=== PATIENT | male | born 1960 | race Caucasian/White ===

== ENCOUNTER 2022-08-16 12:05 | Emergency (ER) | payer OTHER, SELFPAY ==
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
[2022-08-16 12:14] VITALS: BP 127/97; PULSE 67; RESP 18; TEMP 36.8; O2SAT 98
[2022-08-16] MEDS: SILVER SULFADIAZINE 1% CR 50 GM JAR (*BKC) 1 APPLIC TOPICAL (12:31)
== END 2022-08-16 12:37 | disposition home or self-care (01) ==
PROVIDERS: Emergency Provider Nurse Practitioner Family; PCP Emergency Medicine
DX: T23.262A Burn of second degree of back of left hand, initial encounter (principal); T23.232A Burn of second degree of multiple left fingers (nail), not including thumb, initial encounter; X01.0XXA Exposure to flames in uncontrolled fire, not in building or structure, initial encounter; W40.8XXA Explosion of other specified explosive materials, initial encounter; Z96.651 Presence of right artificial knee joint
CPT/HCPCS: 99213; A9270; G0463

== ENCOUNTER 2024-11-24 17:13 | Emergency (ER) | payer OTHER, SELFPAY ==
--- OUTSIDE RECORDS SUMMARY | 2024-11-24 17:17 | XMS_ITS | Clinical Summary ---
Author Organization [facility] Address [address] [place] [address] Care Team Providers Care Charge Entry Name Role Phone Jason Powell Primary Care Provider [phone] Allergies Active Allergy Reactions Criticality Noted Date Comments Statins Other (see comment) Medium 11/21/2018 Possible reaction to statins, with generalized edema and myalgia Medications SUMAtriptan 50 MG tabletIndications :Migraine without aura and without status migrainosus, not intractable TAKE 1 TABLET BY MOUTH WITH HEADACHE. REPEAT EVERY 2 HOURS NEEDED TO A MAX OF 4 TABLETS IN 24 HOURS 27 tablet 1 2 Active aspirin EC (ECOTRIN) 81 MG tablet Take 1 tablet (81 mg total) by mouth daily. Active ezetimibe (ZETIA) 10 MG tabletIndications :Essential hypertension Take 1 tablet (10 mg total) by mouth daily. 90 tablet 1 5 Active hydroCHLOROthiazi de (MICROZIDE) 12.5 MG tabletIndications :Essential hypertension Take 1 tablet (12.5 mg total) by mouth every morning. 90 tablet 1 5 Active meloxicam (MOBIC) 7.5 MG tabletIndications :Chronic pain of right knee Take 1 tablet (7.5 mg total) by mouth daily. 90 tablet 1 5 Active losartan (COZAAR) 50 MG tabletIndications :Essential hypertension Take 1 tablet (50 mg total) by mouth daily. 90 tablet 1 5 Active ondansetron (ZOFRAN) 4 MG tablet Take 1 tablet (4 mg total) by mouth every 8 (eight) hours as needed for Nausea. 20 tablet 5 Active ibuprofen (MOTRIN) 600 MG tablet Take 1 tablet (600 mg total) by mouth every 6 (six) hours as needed. FOR PAIN 5 Active propranolol (INDERAL) 40 MG tabletIndications :Essential hypertension TAKE 1 TABLET BY MOUTH DAILY 90 tablet 5 Active pantoprazole EC (PROTONIX) 40 MG tabletIndications :Gastroesophageal reflux disease with esophagitis without hemorrhage Take 1 tablet (40 mg total) by mouth 2 (two) times a day. 90 tablet 1 5 Active pantoprazole EC (PROTONIX) 40 MG tabletIndications :Gastroesophageal reflux disease with esophagitis without hemorrhage Take 1 tablet (40 mg total) by mouth 2 (two) times a day. 90 tablet 1 5 11/16/19 25 Discontinu ed(Reorder ) Active Problems Problem Noted Date Diagnosed Date Chest pain 07/18/2023 Dyspnea on exertion 06/30/2023 Status post right knee replacement 05/23/2022 Acquired adduction deformity of foot, right 04/23 Rectal bleeding 03/31/2022 Overview (03/31/2022): Added automatically from request for surgery [id number] Tibialis posterior tendinitis 12/20/2020 Osteoarthritis of knee 04/17/2020 Obstructive sleep apnea on CPAP 04/17/2019 Migraine without aura and wi thout status migrainosus, not intractable 07/30/2018 Assessment & Plan (07/30/2018 10:08 AM CDT): Remote history of migraine headaches, with recurrence in the past month, without trauma or other apparent inciting events. Actually waking up in the night with headache, to the point of vomiting at times. Positive photophobia, as well as vertiginous symptoms with headache. Will obtain imaging studies prior to initiating additional treatments. Patient to call with medication used at home for relief. Spinal stenosis of lumbar re gion, unspecified whether neurogenic claudication present 02/01/2018 Assessment & Plan (07/30/2018 10:28 AM CDT): See lumbar radiculopathy, above. Status post finger joint fusion 12/01/2017 Class 1 obesity due to exces s calories with serious comorbidity and body mass index (BMI) of 31.0 to 31.9 in adult 08/12/2017 Assessment & Plan (07/30/2018 10:29 AM CDT): Patient planning on increasing activity and focusing on weight loss. Encouraged routine activity and exercise. Other hyperlipidemia 08/12/2017 Overview (02/12/2018): Transitioned From: Hypercholesterolemia Assessment & Plan (07/30/2018 10:28 AM CDT): Tolerating pravastatin well. Repeat lipid panel today for possible adjustment. Assessment & Plan (04/10/2018 8:48 AM [employer]): Currently tolerating relatively high dose pravastatin. Fasting today-will obtain fasting lipid profile for reevaluation of current therapy. Continue low-fat, low-cholesterol diet. Adjust medication as indicated by lab results. Pending those results, reevaluate in 6 months or 1 year. History of kidney stones 04/08/2017 Overview (02/12/2018): Transitioned From: History of kidney stones Lumbar radiculopathy 02/09/2017 Assessment & Plan (07/30/2018 10:25 AM CDT): Improved on current regimen including Robaxin and scheduled meloxicam. Discharged from neurosurgery and interventional pain management. We will continue to prescribe this for him, as symptoms are stable at this time. Assessment & Plan (04/10/2018 8:46 AM [employer] STICKER): Stable. Managed at present with scheduled meloxicam and routine activity including low back stretches/exercises. Intermittent follow-up with interventional pain management, which remains effective. No change to present therapy. Obtain routine lab work today. Right knee pain 09/24/2016 Medication management 04/27/2015 Assessment & Plan (07/30/2018 10:29 AM CDT): Checking routine labs today (see orders) for ongoing medication monitoring. Assessment & Plan (04/10/2018 8:49 AM [employer]ICK[employer]): Checking routine labs today (see orders) for ongoing medication monitoring. Gastroesophageal reflux dise ase with esophagitis without hemorrhage 03/22/2013 Assessment & Plan (07/30/2018 10:28 AM CDT): Well-controlled on current regimen. Check routine labwork. No treatment change. Assessment & Plan (04/10/2018 8:47 AM [employer]ICKER): Stable on current dosing of pantoprazole, without breakthrough symptoms. Continue present treatments, obtain vitamin B12 and folic acid in addition to other routine lab work, for ongoing PPI use. Reevaluate in 6 months. Essential hypertension 03/22/2013 Assessment & Plan (07/30/2018 10:27 AM CDT): Well controlled. 1) Medication: continue current medication regimen unchanged, encouraged home monitoring, call for persistent elevations at or above 130/85. 2) Regular aerobic exercise 3) Recheck in 6 months, sooner should new symptoms or problems arise. Assessment & Plan (04/10/2018 8:47 AM [employer]): Well-controlled at present, on current dosing of losartan. Check routine lab work today. Continue routine daily exercise and try to follow DASH diet. Reevaluate in 6 months. No change to present therapy. Resolved Problems Problem Noted Date Diagnosed Date Resolved Date Nuclear age-related cataract, right eye 11/29/2018 03/12/2019 Acute renal insufficiency 09/06/2018 Anasarca 09/06/2018 11/21/2018 Medication reaction 09/06/2018 11/22/19 19 Pain of finger of left hand 11/12/2017 04/17/2019 Overview (02/12/2018): Overview: Added automatically from request for surgery [id number] SI (sacroiliac) joint inflammation 10/27/2017 04/17/2019 Open mallet fracture of dist al phalanx of index finger 08/27/2017 07/30/2018 Mass of soft tissue 08/11/2016 04/17/19 20 Overview (02/12/2018): Description: bladder - seen on ct abd [id number] Encounters Date Type Department Care Team Description 11/15/2024 Telephone [facility] General Surgery - [place] [address], [address] [place] [address] Barron Alegre MD Error (ERROR) 10/26/2024 Orders Only [facility] Family Internal [address] [address] Jason Powell PA 10/25/2024 Results Follow-Up [address] [phone] Jason Powell PA PSG with CPAP/BIPAP ([id number]) 10/08/2024 7:55 PM CDT - 10/08/2024 11:59 PM CDT Hospital Encounter [facility] Sleep Lab [address] [place] [id number] Jason Powell PA Excessive Sleepiness Daytime Discharge Disposition: Home or Self Care (Routine Discharge) 10/08/2024 Travel 10/05/[address] [address] Jason Powell PA Referral (GI ) 10/04/2024 4:19 PM CDT - 10/04/2024 8:22 PM CDT Emergency [facility] Emergency Room [id number] [place] [address] Olegario Youngblood MD Rathert, Kyle Colunga MD Diarrhea Discharge Disposition: Home or Self Care (Routine Discharge) 10/04/2024 4:00 PM CDT Office Visit [facility] Internal [facility] [id number] [place] [phone] Jason Powell PA ER F/U (Pt here for follow up from ED on 10/02) 10/04/2024 Travel 10/02/2024 8:29 AM CDT - 10/02/2024 10:14 AM CDT Emergency [facility] Emergency Room [address] [place] [address] Elba Cavanaugh DO Abdominal Pain Discharge Disposition: Home or Self Care (Routine Discharge) 10/02/2024 Travel from Last 3 Months Immunizations Immunization Administration Dates Next Due COVID-19 Vaccine (Generic) 01/11/2024 Flucelvax 6 Months+ (Prefill ed Syringe) 04/10/2017 Influenza (Afluria - Preserv ative Free) 01/11/2024 Influenza (Generic) 11/27/2023,01/18/2023,2018 Influenza Adult (Generic) 02/26/2022,08/2020,01/29/2020,2017 PFIZER COVID-19 (ORIGINAL FORMULATION, PURPLE CAP) mRNA, LNP-S, PF, 30 MCG/0.3 ML DOSE 04/17/2020,03/20/2020 Tdap (Adacel) 08/10/2016 Family History Medical History Relation Comments Diabetes Brother 1 Heart Disease Brother 2 Hypertension Daughter 1 Heart Disease Father Heart Disease Mother Stroke Mother Relation Status Comments Brother 1 diabetes Brother 2 heart attack Brother 3 Alive Daughter 1 Alive Daughter 2 Alive Father internal bleedin g after fall Mother Son Alive Social History Tobacco Use Types Packs/Day Years Used Date Smoking Tobacco: Never Smokeless Tobacco: Never Tobacco Cessation:Counseling Given: No Alcohol Use Standard Drinks/Week Comments No 0 (1 standard drink = 0.6 oz pur e alcohol) socially [facility] Utilities Answer Date Recorded In the past 12 months has e [employer] gas, oil, or water [employer] threatened to shut off services in your home? No 07/18/2023 Humiliation, Afraid, Rape, and Kick questionnair e Answer Date Recorded Within the last year, have y ou been afraid of your partner or ex-partner? No 07/18/2023 Within the last year, have y ou been humiliated or emotionally abused in other ways by your partner or ex-partner? No Within the last year, have y ou been kicked, hit, slapped, or otherwise physically hurt by your partner or ex-partner? No 07/18/2023 Within the last year, have y ou been raped or forced to have any kind of sexual activity by your partner or ex-partner? No 07/18/2023 Overall Financial Resource Strain (CARDIA) Answe r Date Recorded How hard is it for you to pa y for the very basics like food, housing, medical care, and heating? Not hard at all 07/18/2023 PHQ-2 Answer Date Recorded Patient Health Questionnaire-2 Score 0 04/08/2024 Hunger Vital Sign Answer Date Recorded Within the past 12 months, y ou worried that your food would run out before you got the money to buy more. Never true 07/18/19 24 Within the past 12 months, t he food you bought just didn't last and you didn't have money to get more. Never true 07/18/2023 PRAPARE - Transportation Answer Date Re corded In the past 12 months, has l ack of transportation kept you from medical appointments or from getting medications? No 06/22 In the past 12 months, has l ack of transportation kept you from meetings, work, or from getting things needed for daily living? No 07/18/2023 Housing Stability Vital Sign Answer Roe e Recorded In the last 12 months, was t here a time when you were not able to pay the mortgage or rent on time? No 07/18/2023 In the past 12 months, how m any times have you moved where you were living? 1 07/18/2023 At any time in the past 12 m [facility], were you homeless or living in a senior care (including now)? No 07/18/2023 Sex and Gender Information Value Date Recorded Sex Assigned at Male 04/10/2024 5:15 PM [employer] Legal Sex Male 2:50 AM CDT Gender Identity Not on file Sexual Orientation Not on file Last Filed Vital Signs Vital Sign Reading Time Taken Comments Blood Pressure 116/76 10/04/2024 8:04 PM CDT Pulse 69 10/04/2024 8:04 PM CDT Temperature 36.6 C (97.8 F) 10/04/2024 4:30 PM CDT Respiratory Rate 15 10/04/2024 8:04 PM CDT Oxygen Saturation 95% 10/04/2024 8:04 PM CDT Inhaled Oxygen Concentration - - Weight 91.2 kg (201 lb 1 oz) 10/04/2024 4:30 PM CDT Height 177.8 cm (5' 10) 10/04/2024 4:30 PM CDT Body Mass Index 28.85 10/04/2024 4:30 PM CDT Plan of Treatment Health Maintenance Due Date Last Done Comments Pneumococcal Vaccine: 50+ Years (1 of 2 - PCV) 07/30/1978 Zoster Vaccines (1 of 2) 07/30/2009 RSV Immunization or 60+ Years (1 - Risk 60-74 years 1-dose series) 2019 COVID-19 Vaccine ( season) 2024 01/11/2024, 11/27/2023, 03/09/2021, Additional history exists DTaP, Tdap and Td Vaccines (2 - Td or Tdap) 08/10/2026 08/10/2016 Colorectal Cancer Screening Colonoscopy (10 Years) 06/10/2034 06/10/2024, 06/10/2024, 06/10/2024, Additional history exists Hepatitis C 02/22/2054 Postponed from 07/30/1977 (Patient Refused) PHQ-2 (Physician [place]) Completed 04/08/2024 Meningococcal B Vaccine Aged Out No l onger eligible based on patient's age to complete this topic Meningococcal Vaccine Aged Out No alayna genet eligible based on patient's age to complete this topic RSV Immunizations Under 20 Months Aged Out No longer eligible based on patient's age to complete this topic Medical Devices Implanted Type Area Metallurgical Lab Technician Device Identifier Shelf Expiration Date Model / Serial / Lot Iol [employer] Zcboo - [id number] Implanted:Qty: 1 on 11/29/2018 by Glen Salas MD at [facility] Lens Right: Eye [employer] 06/23/2022 [id number] / / [id number] Stent Uret 4.8fr 26cm Pigtl Crv Taper Tip Bldr Mrk - [id number] Implanted:Qty: 1 on 03/20/2017 by Shaheen Olea MD at [facility] Right: Ureter [employer] 10/08/2019 [id number] Description:Pt stated no imp lants. Tecnis 1-Piece Iol Implanted:Qty: 1 on 01/13/2022 by Glen Salas MD at [facility] Left: Eye [employer] [id number] 11/15/2024 [id number] / [id number] / Explanted Type Area Metallurgical Lab Technician Device Identifier Shelf Expiration Date Model / Serial / Lot Pin Pin Left: Finger Procedures Procedure Name Priority Date/Time Associated Diagnosis Comments POLYSOMNOGRAPHY 4 OR MORE PARAMETERS WITH CPAP Routine 10/08/2024 8:30 PM CDT Excessive daytime sleepiness GI PANEL PCR - STOOL STAT 10/04/2024 6:21 PM CDT OCCULT BLOOD, FECES STAT 10/04/2024 6 :21 PM CDT URINALYSIS, AUTO, COMPLETE STAT 10/04/2024 6:[address] ABD+PEL WO CON STAT 10/04/2024 5:3 7 PM CDT MAGNESIUM STAT 10/04/2024 4:32 PM CDT LACTIC ACID W REFLEX (SEPSIS) STAT 10/04/2024 4:32 PM CDT AMYLASE STAT 10/04/2024 4:32 PM CDT LIPASE STAT 10/04/2024 4:32 PM CDT COMPREHENSIVE METABOLIC PANEL STAT 10/04/2024 4:32 PM CDT CBC W/DIFF AUTOMATED STAT 10/04/2024 4:[address] HEAD WO CON STAT 10/02/2024 9:[address] ABD+PEL W CON STAT 10/02/2024 9:31 AM CDT LIPASE STAT 10/02/2024 8:45 AM CDT COMPREHENSIVE METABOLIC PANEL STAT 10/02/2024 8:45 AM CDT CBC W/DIFF AUTOMATED STAT 10/02/2024 8:45 AM CDT COLONOSCOPY Routine 06/10/2024 12:17 PM CDT from Last 3 Months or Most Recently Relevant to Health Maintenance Results * PSG with CPAP/BIPAP (17111) (10/08/2024 8:30 PM CDT) Narrative [facility] - 10/08/2024 8:30 PM CDT Jimmy Reyes MD 10/25/2024 9:55 AM [place], [place] CPAP/BILEVEL TITRATION STUDY INTERPRETATION PATIENT NAME: Dmitry Long DATE OF : 1960 DATE OF SERVICE: 10/08/2024 PATIENT TYPE: CLI Ordering Phy Exam Description Jason Powell PA-C PSG 4+PARAMETERS W/CPAP ATTENDING PHYSICIAN: Jimmy Reyes M.D. REFERRING PHYSICIAN: Jason Powell PA-C GENERAL INFORMATION Total Sleep Time: 364.0 minutes Sleep Efficiency Index: 73.2% Sleep Latency: 7.6 minutes REM Latency: 65.5 minutes Post Respiratory Disturbance Index: 5.9 per hour on BIPAP of 15/11 cm h2O with a backup rate of 10 Post Apnea-Hypopnea Index: 5.9 per hour on BIPAP of 15/11 cm h2O with a back up rate of 10 Procedure: The overnight polysomnogram was an attended study using a multiple channel system including simultaneous monitoring and recording of electroencephalography (EEG), right and left electrooculography (EOC), submental electromyography (EOG), submental electromyography (EMG), EKG, oral/nasal airflow, snoring, respiratory effort, oxygen saturations, right and left anterior tibialis electromyography, and body position. Sleep Architecture: The patient underwent CPAP titration and slept for a total of 364.0 minutes during 497.5 minutes of recording time. Latency to persistent sleep was 7.6 minutes with sleep efficiency of 73.2% and a REM latency of 65.5 minutes. Patient spent 30.6% (111.5 minutes) in stage N1, 47.3% (172.0 minutes) in stage N2, 0.0% (0.0 minutes) in Stage N3, 22.1% (80.5 minutes) in REM. The patient slept 100% of the time in supine position, 0.0% of the time in prone position, 0.0% of the time in left-sided position, and 0.0% of the time in right-sided position. There were 142 arousals, of which 65 were associated with respiratory events and 73 were spontaneous. Arousal index was 23.4 per hour. Limb Activity Summary: The patient demonstrated a total of 22 leg movements during the night, of which 18 had the appearance of periodic limb movements. There were a total of 4 arousals associated with leg movements for an arousal index with leg movements of 0.7 per hour. The periodic limb movement index was 3.0 per hour. Cardiac Events Summary: The average heart rate was 60.6 beats per minute. No cardiac events were noted during this study. Respiratory Events Summary: There were a total of 102 apneas and hypopneas, of which 42 were apneas. Of those apneas, - were Obstructive, 42 were Central and - were Mixed. There were an additional 30 respiratory event-related arousals. Oxygen Saturation Summary: Patient's average saturation was 93.0% during REM and 92.3% during NREM. The patient's lowest saturation was 87.0% during REM and 77.0% during NREM. Saturation was 90% or higher for 89.6% of the total sleep time. Saturation was less than 88% for 2.8% of the total sleep time or 14.3 minutes. CPAP/BiLevel Therapy Summary: The patient underwent CPAP titration starting at 5 cm H2O, up to a maximum of 12 cm H2O, however, the patient was having severe central events while on CPAP so BIPAP was initiated but central events persisted so a back up rate was added and patient was titrated up to 15/11 cm H2O with a back up rate of 10. The patient slept for 20.5 minutes while on the optimal pressure of 15/11 cm H2O with a back up rate of 10 with an AHI of 5.9 per hour, arousal index of 14.6 per hour and minimum oxygen saturation of 92.0%. Assessment/Plan: This patient is a current APAP user with residual symptoms. I recommend initiation of BIPAP at home set at 15.0 cm/11.0 cm h2O with a back up rate of 10 and heated humidity. A one month follow up should be scheduled with the ordering physician to assess efficacy and tolerance of this therapy. If respiratory events persist, further adjustments or further evaluation may be warranted as clinically indicated. This patient's oxygen saturation was at or below 88.0% for 14.3 minutes during this study. Possible need to do additional testing with full night titration with possible supplemental oxygen addition if there are still significant desaturations when patient's AHI is within normal limits should be considered. Also, the possibility of additional medical evaluation based on noted desaturations should be considered. This patient should maintain good sleep hygiene techniques, maintain a consistent sleep/wake schedule with adequate hours of sleep, and avoid hazardous activities when sleepy. The patient should be cautioned about factors that may potentially exacerbate snoring and sleep-related problems, such as MICROSTRATEGY ARCHITECT DEVELOPER depressants, especially at bedtime. This document was electronically signed by: Jimmy Reyes M.D. on 10/24/2024 at 7:52 AM. [facility] ORDERABLES Final Result [facility] [address] [place] [address], * (ABNORMAL) GI PANEL PCR - STOOL (10/04/2024 6:21 PM CDT) CAMPYLOBACTER PCR (STOOL) DETECTED(AA ) NOT DETECTED 10/05/2024 10:58 AM CDT [facility] PLESIOMONAS SHIGELLOIDES PCR (STOOL) NOT DETECTED NOT DETECTED 10/05/2024 10:58 AM CDT [facility] SALMONELLA PCR (STOOL) NOT DETECTED NOT DETECTED 10/05/2024 10:58 AM CDT [facility] VIBRIO PCR (STOOL) NOT DETECTED NOT DETECTED 10/05/2024 10:58 AM CDT [facility] VIBRIO CHOLERAE PCR (STOOL) NOT DETECTED NOT DETECTED 10/05/2024 10:58 AM CDT [facility] YERSINIA ENTEROCOLITICA PCR (STOOL) NOT DETECTED NOT DETECTED 10/05/2024 10:58 AM CDT [facility] ENTEROAGGREGATIVE ECOLI PCR (STOOL) NOT DETECTED NOT DETECTED 10/05/2024 10:58 AM CDT [facility] ENTEROPATHOGENIC ECOLI PCR (STOOL) NOT DETECTED NOT DETECTED 10/05/2024 10:58 AM CDT [facility] ENTEROTOXIGENIC ECOLI PCR (STOOL) NOT DETECTED NOT DETECTED 10/05/2024 10:58 AM CDT [facility] SHIGA LIKE TOXIN ECOLI PCR (STOOL) NOT DETECTED NOT DETECTED 10/05/2024 10:58 AM CDT [facility] SHIG/ENTEROINVASIVE ECOLI PCR (STOOL) NOT DETECTED NOT DETECTED 10/05/2024 10:58 AM CDT [facility] CRYPTOSPORIDIUM PCR (STOOL) NOT DETECTED NOT DETECTED 10/05/2024 10:58 AM CDT [facility] CYCLOSPORA CAYETANENSIS PCR (STOOL) NOT DETECTED NOT DETECTED 10/05/2024 10:58 AM CDT [facility] ENTAMOEBA HISTOLYTICA PCR (STOOL) NOT DETECTED NOT DETECTED 10/05/2024 10:58 AM CDT [facility] GIARDIA LAMBLIA PCR (STOOL) NOT DETECTED NOT DETECTED 10/05/2024 10:58 AM CDT [facility] ADENOVIRUS F40/41 PCR (STOOL) NOT DETECTED NOT DETECTED 10/05/2024 10:58 AM CDT [facility] ASTROVIRUS PCR (STOOL) NOT DETECTED NOT DETECTED 10/05/2024 10:58 AM CDT [facility] NOROVIRUS GI/GII PCR (STOOL) NOT DETECTED NOT DETECTED 10/05/2024 10:58 AM CDT [facility] ROTAVIRUS A PCR (STOOL) NOT DETECTED NOT DETECTED 10/05/2024 10:58 AM CDT [facility] SAPOVIRUS PCR (STOOL) NOT DETECTED NOT DETECTED 10/05/2024 10:58 AM CDT [facility] STOOL SPECIMEN / Unknown 10/04/2024 6:21 PM CDT us Olegario Youngblood MD MICROBIOLOGY - GENERAL ORDERABL ES Final Result [facility] [address] [place] [address], * (ABNORMAL) URINALYSIS, AUTO, COMPLETE (10/04/2024 6:21 PM CDT) COLOR (U) YELLOW 10/04/2024 6:59 PM CDT [facility] TRANSPARENCY CLEAR 10/04/2024 6:59 PM CDT [facility] SPECIFIC GRAVITY (U) 1.020 1.000 - 1.030 10/04/2024 6:59 PM CDT [facility] U PH 6.0 5.0 - 9.0 10/04/2024 6:59 PM CDT [facility] LEUKOCYTES (U) NEGATIVE NEGATIVE 10/04/2024 6:59 PM CDT [facility] NITRITES NEGATIVE NEGATIVE 10/04/2024 6:59 PM CDT [facility] PROTEIN RANDOM (U) NEGATIVE NEGATIVE 10/04/2024 6:59 PM CDT [facility] GLUCOSE (U) NEGATIVE NEGATIVE 10/04/2024 6:59 PM CDT [facility] KETONES MG/DL (U) TRACE(A) NEGATIVE 10/04/2024 6:59 PM CDT [facility] BILIRUBIN (U) NEGATIVE NEGATIVE 10/04/2024 6:59 PM CDT [facility] BLOOD (U) NEGATIVE NEGATIVE 10/04/2024 6:59 PM CDT [facility] WBC/HPF NONE SEEN 0 - 5 /HPF 10/04/2024 6:59 PM CDT [facility] RBC/HPF NONE SEEN 0 - 5 /HPF 10/04/2024 6:59 PM CDT [facility] EPI/HPF RARE /HPF 10/04/2024 6:59 PM CDT [facility] OTHER CASTS (U) FEW /LPF 6:59 PM CDT [facility] Comment:HYALINE CRYSTALS (U) RARE /HPF 10/04/2024 6:59 PM CDT [facility] Comment:CA OXALATE URINE SPECIMEN OBTAINED BY CLEAN CATCH PROCEDURE / Unknown 10/04/2024 6:21 PM CDT Olegario Youngblood MD URINE ORDERABLES Final Result [facility] [address] [place] [address], [place] [phone] * (ABNORMAL) OCCULT BLOOD, FECES (10/04/2024 6:21 PM CDT) OCCULT BLOOD FECAL POSITIVE(A ) NEGATIVE 10/04/2024 6:47 PM CDT [facility] STOOL SPECIMEN / Unknown 10/04/2024 6:21 PM CDT Olegario Youngblood MD BODY FLUIDS AND STOOLS ORDERABL ES Final Result [facility] [facility] [address] [place] [address], [place] [phone] * CT ABD+PEL WO CON (10/04/2024 5:37 PM CDT) Anatomical Region Laterality Modality Abdomen Computed Tomogra phy 10/04/2024 6:48 PM CDT Impressions 10/04/2024 6:56 PM CDT IMPRESSION: Previous large bowel findings are less apparent without contrast. With the given symptoms, probable colitis. Referred By: Interpreted By: Williams Mitchell MD, 10/04/2024 6:48 PM Narrative 10/04/2024 6:56 PM CDT [facility] [address] [facility] [place] [address] EXAM: CT ABD+PEL WO CON DATE: 10/04/2024 COMPARISON: 10/02/2024 INDICATION: Diarrhea with blood TECHNIQUE: Noncontrast imaging A dose lowering technique was used for this procedure, which may include, but is not limited to, dose reduction technique, automated exposure control, iterative reconstruction, ALARA (As Low As Reasonably Achievable), or Image Gently techniques. FINDINGS: Mild densities in the left lower lobe could represent atelectasis or infection. Aortic valve calcifications. Coronary artery calcifications. Fatty liver. Normal appearance of the spleen, adrenal glands, and pancreas. Cholecystectomy. Multiple bilateral nonobstructing kidney stones of variable size. Normal urinary bladder. Bilateral fat-containing inguinal hernias, left greater than right. The left likely extends into the nonvisualized scrotum. Most of the large bowel is poorly distended. The diffuse low-density wall findings are less apparent without contrast. Findings are most severe in the cecum and ascending colon. No marked wall thickening. Unknown if there has been a history of antibiotic use recently. It is possible that some of the diffuse low-density wall findings are due to fat deposition. No bowel obstruction. Stomach is poorly distended and grossly normal. Normal small bowel. Appendectomy. No ascites. Multiple normal size lymph nodes scattered through the abdomen. Diffuse degenerative disc disease. Procedure Note Williams Mitchell MD - 10/04/2024 [facility] [address] [place] [address] EXAM: CT ABD+PEL WO CON DATE: 10/04/2024 COMPARISON: 10/02/2024 INDICATION: Diarrhea with blood TECHNIQUE: Noncontrast imaging A dose lowering technique was used for this procedure, which may include,but is not limited to, dose reduction technique, automated exposurecontrol, iterative reconstruction, ALARA (As Low As ReasonablyAchievable), or Image Gently techniques. FINDINGS: Mild densities in the left lower lobe could representatelectasis or infection. Aortic valve calcifications. Coronary arterycalcifications. Fatty liver. Normal appearance of the spleen, adrenal glands, andpancreas. Cholecystectomy. Multiple bilateral nonobstructing kidney stones of variable size. Normalurinary bladder. Bilateral fat-containing inguinal hernias, left greaterthan right. The left likely extends into the nonvisualized scrotum. Most of the large bowel is poorly distended. The diffuse low-density wallfindings are less apparent without contrast. Findings are most severe inthe cecum and ascending colon. No marked wall thickening. Unknown ifthere has been a history of antibiotic use recently. It is possible thatsome of the diffuse low-density wall findings are due to fat deposition.No bowel obstruction. Stomach is poorly distended and grossly normal. Normal small bowel.Appendectomy. No ascites. Multiple normal size lymph nodes scatteredthrough the abdomen. Diffuse degenerative disc disease. IMPRESSION: Previous large bowel findings are less apparent withoutcontrast. With the given symptoms, probable colitis. Referred By: Interpreted By: Williams Mitchell MD, 10/04/2024 6:48 PM us Olegario Youngblood MD CT Final Result * LACTIC ACID W REFLEX (SEPSIS) (10/04/2024 4:32 PM CDT) LACTIC ACID VENOUS 0.9 0.4 - 2.0 MMOL/L 10/04/2024 5:31 PM CDT [facility] 10/04/2024 4:32 PM CDT Olegario Youngblood MD LABORATORY Final Result [facility] [address] [place] [address], [place] [phone] * (ABNORMAL) COMPREHENSIVE METABOLIC PANEL (10/04/2024 4:32 PM CDT) Only the most recent of2 resultswithin the time period is included. GLUCOSE 104(H) 70 - 99 MG/DL 10/04/2024 5:29 PM CDT [facility] BUN 17 7 - 18 MG/DL 10/04/2024 5:29 PM CDT [facility] CREATININE S/P/B 1.73(H) 0.7 - 1.3 MG/DL 10/04/2024 5:29 PM CDT [facility] SODIUM S/P/B 136 136 - 145 MMOL/L 10/04/2024 5:29 PM CDT [facility] POTASSIUM S/P/B 4.3 3.5 - 5.1 MMOL/L 10/04/2024 5:29 PM CDT [facility] CHLORIDE S/P/B 101 100 - 108 MMOL/L 10/04/2024 5:29 PM CDT [facility] CO2 29.0 21 - 32 MMOL/L 10/04/2024 5:29 PM CDT [facility] CALCIUM S/P/B 9.1 8.5 - 10.1 MG/DL 10/04/2024 5:29 PM CDT [facility] BILIRUBIN TOTAL S/P/B 0.5 0.2 - 1.2 MG/DL 10/04/2024 5:29 PM CDT [facility] TOTAL PROTEIN S/P/B 7.0 6.4 - 8.2 G/DL 10/04/2024 5:29 PM CDT [facility] ALBUMIN S/P/B 3.5 3.4 - 5.0 G/DL 10/04/2024 5:29 PM CDT [facility] AST 21 15 - 37 U/L 10/04/2024 5:29 PM T [facility] ALT 31 16 - 60 U/L 10/04/2024 5:29 PM CDT [facility] ALKALINE PHOSPHATASE S/P/B 72 50 - 136 U/L 10/04/2024 5:29 PM T [facility] ANION GAP 6.0 5 - 15 MMOL/L 10/04/2024 5:29 PM T [facility] BUN CREATININE RATIO 9.8 6 - 26 10/04/2024 5:29 PM T [facility] A/G RATIO 1.0 1.0 - 2.0 RATIO 10/04/2024 5:29 PM [facility] GFR ESTIMATE 43(L) >90 ML/MIN/1.7 3 M2 10/04/2024 5:29 PM T [facility] Comment: NOTE: eGFR is not calculated for patients <18 years of age. This is an estimated GFR calculation using the new CKD EPI creatinine equation without race and so does not require a correction factor for race. This estimated GFR should not be used for calculating drug doses. 10/04/2024 4:32 PM CDT us Olegario Youngblood MD LABORATORY Final Result [facility] [address] [place] [address], [place] [phone] * (ABNORMAL) CBC W/DIFF AUTOMATED (10/04/2024 4:32 PM CDT) Only the most recent of2 resultswithin the time period is included. WBC 5.59 4.4 - 11.0 x10'3/uL 10/04/2024 5:38 PM CDT [facility] RBC 4.46(L) 4.50 - 5.90 x10'6/uL 10/04/2024 5:38 PM CDT [facility] HGB 13.9(L) 14.0 - 17.5 G/DL 10/04/2024 5:38 PM CDT [facility] HCT 39.7(L) 41.5 - 50.4 % 10/04/2024 5:38 PM CDT [facility] MCV 89.0 80.0 - 96.0 FL 10/04/2024 5:38 PM CDT [facility] MCH 31.2 26.5 - 31.4 PG 10/04/2024 5:38 PM CDT [facility] MCHC 35.0(H) 31.9 - 34.8 G/DL 10/04/2024 5:38 PM CDT [facility] RDW 13.1 12.3 - 14.3 % 10/04/2024 5:38 PM CDT [facility] PLT 260 151 - 353 x10'3/uL 10/04/2024 5:38 PM CDT [facility] MPV 9.1(L) 9.7 - 11.9 FL 10/04/2024 5:38 PM CDT [facility] SEG NEUTROPHILS 38(L) 42 - 72 % 5:40 PM CDT [facility] LYMPHOCYTES 38 15.8 - 45.0 % 10/04/2024 5:40 PM CDT [facility] MONOCYTES 15(H) 5.7 - 12.5 % 10/04/2024 5:40 PM CDT [facility] EOSINOPHILS 6(H) 0 - 5.6 % 10/04/2024 5:40 PM CDT [facility] BASOPHILS 1 0 - 1.3 % 10/04/2024 5:40 PM CDT [facility] ATYP. LYMPHS 2 % 10/04/2024 5:40 PM CDT [facility] ABS. NEUTROPHILS 2.12 1.40 - 6.00 x10'3/uL 10/04/2024 5:40 PM CDT [facility] ABS. LYMPHOCYTES 2.24 0.80 - 4.70 x10'3/uL 10/04/2024 5:40 PM CDT [facility] PLT MORPH. NORMAL 10/04/2024 5:40 PM CDT [facility] RBC MORPHOLOGY NORMAL 10/04/2024 5:40 PM CDT [facility] WBC MORPHOLOGY NORMAL 10/04/2024 5:40 PM CDT [facility] 10/04/2024 4:32 PM CDT Olegario Youngblood MD LABORATORY Final Result [facility] [address] [place] [phone], * AMYLASE (10/04/2024 4:32 PM CDT) AMYLASE S/P/B 84 25 - 115 UNITS/L 10/04/2024 5:29 PM CDT [facility] 10/04/2024 4:32 PM CDT us Olegario Youngblood MD LABORATORY Final Result Performing Organization Address [facility]/ZIP Co de Phone Number [facility] [address] [place] [address], [place] [phone] * MAGNESIUM (10/04/2024 4:32 PM CDT) MAGNESIUM 2.0 1.8 - 2.4 MG/DL 10/04/2024 5:29 PM CDT [facility] 10/04/2024 4:32 PM CDT us Olegario Youngblood MD LABORATORY Final Result Performing Organization Address [facility] de Phone Number [facility] [id number] [place] [address], [place] [phone] * LIPASE (10/04/2024 4:32 PM CDT) Only the most recent of2 resultswithin the time period is included. LIPASE 38 16 - 77 UNITS/L 10/04/2024 5:29 PM CDT [facility] 10/04/2024 4:32 PM CDT us Olegario Youngblood MD LABORATORY Final Result Performing Organization Address [facility] Co de Phone Number [facility] [address] [place] [address], [place] [phone] * CT HEAD WO CON (10/02/2024 9:33 AM CDT) Anatomical Region Laterality Modality Head Computed Tomogra phy 10/02/2024 9:46 AM CDT Impressions 10/02/2024 9:46 AM CDT IMPRESSION: No acute findings Ordered By: ELBA CAVANAUGH Interpreted By: Toni Rob MD, 10/02/2024 9:46 AM Narrative 10/02/2024 9:46 AM CDT [facility] [address] [place] [id number] CT HEAD WITHOUT CONTRAST Exam date: 10/02/2024 9:46 AM Clinical history: Headache Technique: 3 mm collimated axial images of the head were obtained without contrast. A dose lowering technique was used for this procedure, which may include, but is not limited to, dose reduction technique, automated exposure control, the use of iterative reconstruction, and ALARA (As Low As Reasonably Achievable) / Image Gently techniques. Comparison: August 06, 2018 FINDINGS: Images of the head demonstrate no evidence of acute or chronic intracranial hemorrhage. No masses or mass effects are seen. The ventricles and sulci are symmetric. There is no evidence of midline shift. There is normal pelaez-white differentiation throughout. No extra-axial fluid collections are evident. Bone windows reveal the paranasal sinuses and mastoid air cells to appear clear. There is no evidence of fracture. Procedure Note Toni Rob MD - 10/02/2024 [facility] [address] [place] [id number] CT HEAD WITHOUT CONTRAST Exam date: 10/02/2024 9:46 AM Clinical history: Headache Technique: 3 mm collimated axial images of the head were obtained withoutcontrast. A dose lowering technique was used for this procedure, which mayinclude, but is not limited to, dose reduction technique, automatedexposure control, the use of iterative reconstruction, and ALARA (As LowAs Reasonably Achievable) / Image Gently techniques. Comparison: August 06, 2018 FINDINGS: Images of the head demonstrate no evidence of acute or chronicintracranial hemorrhage. No masses or mass effects are seen. Theventricles and sulci are symmetric. There is no evidence of midline shift.There is normal pelaez-white differentiation throughout. No extra-axialfluid collections are evident. Bone windows reveal the paranasal sinuses and mastoid air cells to appearclear. There is no evidence of fracture. IMPRESSION: No acute findings Ordered By: ELBA CAVANAUGH Interpreted By: Toni Rob MD, 10/02/2024 9:46 AM us Elba Cavanaugh DO CT Final Result * CT ABD+PEL W IV CON ONLY (10/02/2024 9:31 AM CDT) Anatomical Region Laterality Modality Abdomen Computed Tomogra phy 10/02/2024 9:46 AM CDT Impressions 10/02/2024 9:48 AM CDT IMPRESSION: 1. Mild diffuse colitis 2. Innumerable bilateral nonobstructing kidney stones Ordered By: ELBA CAVANAUGH Interpreted By: Toni Rob MD, 10/02/2024 9:46 AM Narrative 10/02/2024 9:48 AM CDT [place] [id number] [facility] [place] [address] CT ABDOMEN AND PELVIS WITH CONTRAST Exam date:10/02/2024 9:20 AM Clinical history: Abdomen pain. Technique: Dynamic helical images of the abdomen and pelvis were obtained. The patient received approximately 80 mL of Isovue 370 nonionic intravenous contrast through an IV in the right antecubital fossa. A dose lowering technique was used for this procedure, which may include, but is not limited to, dose reduction technique, automated exposure control, the use of iterative reconstruction, and ALARA (As Low As Reasonably Achievable) / Image Gently techniques. Comparison: April 10, 2024. FINDINGS: Images of the lower thorax demonstrate the visualized portion of the heart to appear normal. The lung bases are clear. Images of the abdomen demonstrate the overall size and morphology of the liver to be within normal limits. No hepatic lesions are observed. No ascites is seen. The gallbladder is surgically absent. The pancreas, spleen, and adrenal glands appear grossly normal. The kidneys are normal in overall size. Many stones are scattered throughout the calyces of both kidneys. No hydronephrosis is present. Images of the pelvis demonstrate the urinary bladder to appear normal. The prostate is normal in size. The stomach and small bowel have a normal overall appearance. The appendix is surgically absent. There is mild circumferential thickening of the colon wall throughout suggesting mild colitis. Overall, enhancement of the colonic mucosa appears grossly normal. No adenopathy or abnormal fluid collections are present Procedure Note Toni Rob MD - 10/02/2024 [facility] [address] [place] [address] CT ABDOMEN AND PELVIS WITH CONTRAST Exam date:10/02/2024 9:20 AM Clinical history: Abdomen pain. Technique: Dynamic helical images of the abdomen and pelvis were obtained.The patient received approximately 80 mL of Isovue 370 nonionicintravenous contrast through an IV in the right antecubital fossa. A doselowering technique was used for this procedure, which may include, but isnot limited to, dose reduction technique, automated exposure control, theuse of iterative reconstruction, and ALARA (As Low As ReasonablyAchievable) / Image Gently techniques. Comparison: April 10, 2024. FINDINGS: Images of the lower thorax demonstrate the visualized portion of the heartto appear normal. The lung bases are clear. Images of the abdomen demonstrate the overall size and morphology of theliver to be within normal limits. No hepatic lesions are observed. Noascites is seen. The gallbladder is surgically absent. The pancreas,spleen, and adrenal glands appear grossly normal. The kidneys are normalin overall size. Many stones are scattered throughout the calyces of bothkidneys. No hydronephrosis is present. Images of the pelvis demonstrate the urinary bladder to appear normal. Theprostate is normal in size. The stomach and small bowel have a normal overall appearance. The appendixis surgically absent. There is mild circumferential thickening of thecolon wall throughout suggesting mild colitis. Overall, enhancement of thecolonic mucosa appears grossly normal. No adenopathy or abnormal fluidcollections are present IMPRESSION: 1. Mild diffuse colitis 2. Innumerable bilateral nonobstructing kidney stones Ordered By: ELBA CAVANAUGH Interpreted By: Toni Rob MD, 10/02/2024 9:46 AM Elba Cavanaugh DO CT Final Result * COLONOSCOPY GENERIC (SCAN ORDER) (06/10/2024) 06/10/2024 [facility] Scanned SCANNING Final Resu lt from Last 3 Months or Most Recently Relevant to Health Maintenance Insurance [employer] Advance Directives * Full Code (Latest Code Status on File) Date Activated Date Inactivated Comments 07/18/2023 8:32 PM 07/20/2023 5:54 PM * Full Code Date Activated Date Inactivated Comments 03/20/2017 10:04 AM 03/20/2017 1:29 PM Care Teams Charge Entry Relationship Specialty [place] [address] [place] [address] PCP - General Physician District Manager Postal Service Medical 02/17/24
--- OUTSIDE RECORDS SUMMARY | 2024-11-24 17:17 | XMS_ITS | Patient Health Record ---
Author Organization [facility] Address [address] [place], [place] [id number] Care Team Providers Care Epic Ambulatory Analysts Name Role Phone Jj Knutson Unavailable Unavailable Reason For Referral No Information Plan Of Treatment No Information Insurance Providers Payer Name Payer Address Payer Phone Subscriber Number Group Number Insured Name Patient Relationship to Insured Coverage Start Date Coverage End Date R Ganesh / MILLI [id number] [id number] PEARL LECHUGA Self - patient is the insured
--- OUTSIDE RECORDS SUMMARY | 2024-11-24 17:17 | XMS_ITS | Encounter Summary ---
Author Organization [facility] Address [address] [place] [address] Care Team Providers Care Sql Programmer Analyst Name Role Phone Jason Powell Primary Care Provider [phone] Encounter Details Date Type Department Care Team (Late st Contact Info) Description 10/25/2024 Results Follow-Up [facility] Medical Group Family & Internal Medicine [facility] [id number] [place] [phone] Jason Powell PA [address] [place] [address] PSG with CPAP/BIPAP ([id number]) Social History Tobacco Use Types Packs/Day Years Used Date Smoking Tobacco: Never Smokeless Tobacco: Never Alcohol Use Standard Drinks/Week Comments No 0 (1 standard drink = 0.6 oz pur e alcohol) socially [facility] Utilities Answer Date Recorded In the past 12 months has e electric, gas, oil, or water [email or web address] threatened to shut off services in your [...] any time in the past 12 [facility], were you homeless or living in a [facility] (including now)? 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 Answer Date of Assessment Author Status No 07/18/2023 9:32 PM Chantel Sandoval RN Active * Do you have serious difficulty walking or climbing stairs? Answer Date of Assessment Author Status No 07/18/2023 9:32 PM Chantel Sandoval RN Active * Do you have difficulty dressing or bathing? Answer Date of Assessment Author Status No 07/18/2023 9:32 PM Chantel Sandoval RN Active * Because of a physical, mental, or emotional condition, do you have difficulty doing errands alone such as visiting a doctor's office or shopping? Answer Date of Assessment Author Status No 07/18/2023 9:32 PM Chantel Sandoval RN Active documented as of this encounter Mental Status * Because of a physical, mental, or emotional condition, do you have serious difficulty concentrating, remembering, or making decisions? 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
--- OUTSIDE RECORDS SUMMARY | 2024-11-24 17:17 | XMS_ITS | Clinical Summary ---
Author Organization [facility] Address [address] [place] [address] Care Team Providers Care Director Of Annual Giving Name Role Phone Unavailable Primary Care Provider Unavailabl e Medications losartan (COZAAR) 50 mg tablet Take 50 mg by mouth daily. 08/09/2021 Active pantoprazole (PROTONIX) 40 mg Tablet, Delayed Release (E.C.) Take 40 mg by mouth daily. 08/09/2021 Active propranoloL (INDERAL) 40 mg tablet Take 1 Tablet by mouth 2 times daily. Active hydroCHLOROthiaz jay 12.5 mg tablet Take 12.5 mg by mouth daily. 08/09/2021 Active ezetimibe (ZETIA) 10 mg tablet Take 10 mg by mouth daily. 08/09/2021 Active meloxicam (MOBIC) 7.5 mg tablet Take 1 Tablet by mouth daily. 08/09/2021 Active Active Problems Problem Noted Date Diagnosed Date Primary hypertension 11/17/2023 High cholesterol 11/17/2023 GERD (gastroesophageal reflux disease) 4 Status post total right knee replacement 024 Social History Tobacco Use Types Packs/Day Years Used Date Smoking Tobacco: Never Smokeless Tobacco: Never Tobacco Cessation:Counseling Given: Not Answered Sex and Gender Information Value Date Recorded Sex Assigned at Not on file Legal Sex Male 8:54 AM CDT Gender Identity Not on file Sexual Orientation Not on file Last Filed Vital Signs Vital Sign Reading Time Taken Comments Blood Pressure - - Pulse - - Temperature - - Respiratory Rate - - Oxygen Saturation - - Inhaled Oxygen Concentration - - Weight 92.5 kg (204 lb) 11/17/2023 11:27 AM CDT Height 170.2 cm (5' 7) 11/17/2023 11:27 AM CDT Body Mass Index 31.95 11/17/2023 11:27 AM CDT Plan of Treatment Health Maintenance Due Date Last Done Comments Pre-Diabetes and Diabetes Screening 1960 FIT-DNA Q 3 years 07/30/2004 FIT/FOBT Q 1 year 07/30/2004 Flex Sig/CT Colonography Q 5 years 07/30/2004 PNEUMOCOCCAL VACCINE 50+ YEARS (1 of 1 - PCV) 07/31/19 10 ZOSTER VACCINE (1 of 2) 07/30/2009 INFLUENZA VACCINE (#1) 2024 04/10/2017 DTAP/TDAP/TD VACCINES (2 - Td or Tdap) 08/10/2026 COLORECTAL SCREENING 04/18/2032 04/18/2022 Colorectal Cancer Screening 04/18/2032 RSV VACCINE (60+ or ) (1 - 1-dose 75+ series) 07/30/2034 Insurance [employer] [id number] [place] [id number]
--- OUTSIDE RECORDS SUMMARY | 2024-11-24 17:17 | XMS_ITS | Encounter Summary ---
Author Organization [facility] Address [facility] [place] [address] Care Team Providers Care Planting Material Carrier Name Role Phone Jj Knutson MD Primary Care Provider [phone] Jj Knutson MD Primary Care Provider [phone] Jason Powell Primary Care Provider [phone] Encounter Details Date Type Department Care Team (Late st Contact Info) Description 06/19/2015 Abstract [facility] CONVERSION [address] [place], [place] [id number] , Generic MD Jax Social History Tobacco Use Types Packs/Day Years Used Date Smoking Tobacco: Never Assessed Sex and Gender Information Value Date Recorded Sex Assigned at Male 04/10/2024 5: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
--- OUTSIDE RECORDS SUMMARY | 2024-11-24 17:17 | XMS_ITS | Encounter Summary ---
Author Organization [facility] Address [facility] [place] [address] Care Team Providers Care Extractor Operator Solvent Process Name Role Phone Jj Knutson MD Primary Care Provider [phone] Jason Powell Primary Care Provider Encounter Details Date Type Department Care Team (Late st Contact Info) Description 01/23/2024 [employer] Message Enc [facility] [address] [place] [id number] Terry Butler MD [address] [address] Labs Social History Tobacco Use Types Packs/Day Years Used Date Smoking Tobacco: Never Smokeless Tobacco: Never Alcohol Use Standard Drinks/Week Comments No 0 (1 standard drink = 0.6 oz pur e alcohol) socially [facility] Utilities Answer Date Recorded In the past 12 months has e electric, gas, oil, or water company threatened to shut off services in your [...] Date Recorded Patient Health Questionnaire-2 Score 0 01/08/2024 Hunger Vital Sign Answer Date Recorded Within [...] any time in the past 12 m [facility], were you homeless or living in a fdc (including now)? 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
--- OUTSIDE RECORDS SUMMARY | 2024-11-24 17:17 | XMS_ITS | Clinical Summary ---
Author Organization [facility] Address [address] [place] [address] Care Team Providers Care Wafer Slicer Name Role Phone Jj Knutson MD Primary Care Provider + Jj Knutson MD Unavailable [phone] Lee Man MD Unavailable [phone] Jason Powell Unavailable [phone] Allergies Active Allergy Reactions Criticality Noted Date Comments Wkdpfib-Cct-Mqi Reductase Inhibitors Other (See comments) Low 03/26/2023 Pt does not rememeber Medications ezetimibe (ZETIA) 10 mg tabletIndicatio ns:hyperlipidem ia Take 1 tablet (10 mg total) by mouth nightly 02/18/2023 Active hydroCHLOROthia zide (HYDRODIURIL) 12.5 mg tabletIndicatio ns:hypertension Take 1 tablet (12.5 mg total) by mouth every morning 02/18/2023 Active losartan (COZAAR) 50 mg tabletIndicatio ns:hypertension Take 1 tablet (50 mg total) by mouth every morning 02/18/2023 Active meloxicam (MOBIC) 7.5 mg tabletIndicatio ns:Osteoarthrit is Take 1 tablet (7.5 mg total) by mouth every morning 02/18/[address] (PROTONIX) 40 mg EC tabletIndicatio ns:Treatment of Non-Bleeding Gastric Disorder Take 1 tablet (40 mg total) by mouth 2 (two) times a day 02/18/2023 Active propranoloL (INDERAL) 40 mg tabletIndicatio ns:Migraine Prevention Take 1 tablet (40 mg total) by mouth every morning 02/23/2023 Active SUMAtriptan (IMITREX) 50 mg tablet Take 1 tablet (50 mg total) by mouth once as needed for migraine 03/05/2023 Active multivitamin with iron tabletIndicatio ns:Vitamin Deficiency Prevention Take 1 tablet by mouth every morning Active aspirin/acetami nophen/caffeine (EXCEDRIN EXTRA STRENGTH ORAL)Indication s:headaches Take 2 tablets by mouth daily as needed Active HYDROcodone-etre taminophen (NORCO) 5-325 mg per tabletIndicatio ns:Pain Take 1-2 tablets by mouth every 4 (four) hours as needed for pain 20 tablet 04/16/2023 Active oxyCODONE-aceta minophen (PERCOCET) 5-325 mg per tabletIndicatio ns:Pain Take 1 tablet by mouth every 4 (four) hours as needed for pain 20 tablet 06/28/2024 Active ibuprofen (ADVIL,MOTRIN) 600 mg tablet Take 1 tablet (600 mg total) by mouth every 6 (six) hours as needed for pain 30 tablet 06/28/2024 Active cyclobenzaprine (FLEXERIL) 5 mg tablet Take 1 tablet (5 mg total) by mouth 3 (three) times a day for 10 days 30 tablet 06/28/2024 Active Active Problems Problem Noted Date Diagnosed Date Abdominal pain 06/28/2024 Rupture of right triceps tendon 03/25/2023 Status post finger joint fusion 12/01/2017 Pain of finger of left hand 11/12/2017 Overview (11/12/2017): Added automatically from request for surgery [id number] Open mallet fracture of distal phalanx of index finger 08/27/2017 Surgical History Surgery Date Site/Laterality Comments ROTATOR CUFF REPAIR 03/23/2007 - 03/22/2008 Bilateral FINGER SURGERY 07/21/2017 - 08/20/2017 Left finger reattachment; work injury TONSILLECTOMY KNEE ARTHROPLASTY 05/20/2022 Right LITHOTRIPSY 03/23/2017 - 03/22/2018 CATARACT EXTRACTION 01/13/2022 Left right- 2019 COLONOSCOPY 04/18/2022 AMPUTATION FINGER / THUMB Right Medical History Medical History Date Comments Hypertension Hypercholesteremia Kidney stone Acid reflux PONV (postoperative nausea and vomiting) scop patch helps Sleep apnea wears cpap Motion sickness Anasarca 09/06/2018 Anemia Headache hx of migraines Family History Medical History Relation Name Comments Heart disease Brother Anesthesia problems Neg Hx Relation Name Status Comments Brother Social History Tobacco Use Types Packs/Day Years Used Date Smoking Tobacco: Never Passive Smoke Exposure: Past Smokeless Tobacco: Never Tobacco Cessation:Counseling Given: Not Answered Passive Exposure Comments:parents Alcohol Use Standard Drinks/Week Comments Yes 0 (1 standard drink = 0.6 oz pur e alcohol) rare-4 drinks a month AUDIT-C Answer Date Recorded Q1: How often do you have a drink containing alc ohol? Monthly or less 06/28/2024 Q2: How many drinks containi ng alcohol do you have on a typical day when you are drinking? 1 or 2 06/28/2024 Q3: How often do you have si x or more drinks on one occasion? Never 06/28/2024 Personal Safety Answer Date Recorded Have you ever been in or are you currently in a harmful physical or emotional relationship or is someone making you feel afraid or unsafe? 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 Gender Identity Not on file Sexual Orientation Not on file Obstetrics History Last Filed Vital Signs Vital Sign Reading Time Taken Comments Blood Pressure 135/86 06/30/2024 7:33 AM CDT Pulse 57 06/30/2024 7:33 AM CDT Temperature 36.7 C (98.1 F) 06/30/2024 7:33 AM CDT Respiratory Rate 18 06/30/2024 4:56 AM CDT Oxygen Saturation 91% 06/30/2024 7:33 AM CDT Inhaled Oxygen Concentration - - Weight 92 kg (202 lb 12.8 oz) 06/28/2024 9:06 AM CDT Height 177.8 cm (5' 10) 06/28/2024 9:06 AM CDT Body Mass Index 29.1 06/28/2024 9:06 AM CDT Plan of Treatment Health Maintenance Due Date Last Done Comments Colon Cancer Screening-Colonoscopy 1960 Depression Screening 1960 Hepatitis C Screening 1959 Prostate Cancer Screening-PSA 1959 Hepatitis B Screening 07/30/1977 Pneumococcal vaccine 65+ (1 of 1 - PCV) 07/30/2009 Zoster Vaccine (1 of 2) 07/30/2009 Well Visit 65+ 07/30/2024 Influenza Vaccine (#1) 2024 4, 11/27/2023, 01/18/2023, Additional history exists Fall Risk Assessment 06/30/2025 06/30/2024 DTaP/Tdap/Td Vaccine (2 - Td or Tdap) 08/10/2026 08/10/2016 Medical Devices Implanted Type Area Director Cpg Device Identifier Shelf Expiration Date Model / Serial / Lot [employer] Ar-[id number] Compression Ft 2.5mm 30mm Compression Self Tap Cannulated Hex 1.5 - [id number] Implanted:Qty: 1 on 11/17/2017 by Lee Man MD at [facility] Screw Left: Index Finger [employer] AR-8725-30 H / / Right Total Knee Replacement Right: Knee Insurance [facility] H[facility]/PPO Address: [facility] [address] [place] [address] [facility]/PPO Address: [address] [place] [phone] [facility] [employer]/PPO Address: [address] [place] [phone] [facility] [employer] Advance Directives For more information, please contact: [phone] * Full Code (Latest Code Status on File) Date Activated Date Inactivated Comments 06/28/2024 6:16 PM 06/30/2024 3:07 PM * Full Code Date Activated Date Inactivated Comments 11/17/2017 3:45 PM 11/17/2017 7:05 PM Care Teams Wafer Slicer Relationship Specialty Start Date End Date Jj Knutson MD [address] [address] PCP - General Internal Medicine 03/17/23 Jj Knutson MD [address] [address] 03/17/23 Lee Man MD [address] [facility] [address] [place] [address] Referring Physician Orthopedic Surgery 11/19/17 [place] [address] [place] [address] Physician Quarrying Specialist Equal Opportunity Specialist 06/21/24
[2024-11-24 17:26] VITALS: BP 125/74; PULSE 63; RESP 18; TEMP 36.2; O2SAT 98
--- NOTE | 2024-11-24 17:36 | ED.URI ---
HPI - URI/Sore Throat General Chief Complaint: Upper Respiratory Infection Stated Complaint: stuffy nose Time Seen by Provider: 11/24/24 17:30 Source: patient Mode of arrival: ambulatory Limitations: no limitations History of Present Illness HPI Narrative: Angel is a 64-year-old male patient presenting to the clinic today with complaints of nasal congestion, head congestion, and bilateral ear pain x1 day. He reports he has been taking [id number] severe cold and flu medications. States symptoms are not improving. Rates pain 6/10 currently. No fever, chills, or body aches. No sick contacts. Denies any chest pain or shortness of breath. Related Data Home Medications ?Medication ?Instructions ?Recorded ?Confirmed ?Last Taken ?Type hydrochlorothiazide 12.5 mg tablet 12.5 mg PO DAILY 08/16/22 08/16/22 Unknown History losartan 50 mg tablet 50 mg PO DAILY 08/16/22 08/16/22 Unknown History meloxicam 7.5 mg tablet 7.5 mg PO DAILY 08/16/22 08/16/22 Unknown History pantoprazole 40 mg tablet,delayed 40 mg PO DAILY 08/16/22 08/16/22 Unknown History release Allergies Allergy/AdvReac Type Severity Reaction Status Date / Time No Known Allergies Allergy Verified 11/24/24 17:25 Review of Systems Review of Systems: Pertinent positives per HPI. Patient denies any fever, chills, rash, headache, visual changes, dizziness, shortness of breath, chest pain, palpitations, nausea, vomiting, diarrhea, constipation, abdominal pain, or any urinary issues. PMFSH Comments At the time of my signature, I reviewed and agree with the nursing past medical, surgical, social, and family history. There is no relevant family history pertinent to the patient complaint. Exam Narrative: General: Well-developed, well nourished, in no apparent distress Head: Normocephalic, atraumatic Eyes: Pupils equally round and reactive to light bilaterally, EOM intact, sclera and conjunctive clear, no discharge, lids normal Ears: TMs intact, bulging, red, ear canals clear, no drainage, grossly hearing normal. Nose: Nares patent, clear nasal discharge, no inflammation, no sinus tenderness. Mouth: Oral pharynx red without lesions or masses, good dentition, MMM. PND Neck: Supple, trachea midline, no enlargement of anterior or posterior cervical nodes, no thyroid masses or goiter palpable. Cardio: Regular rate and rhythm, s1 and s2 normal, no murmur appreciated. Resp: Clear to auscultation bilaterally, no rhonchi, rales, wheezing or rubs Course Course Emergency Course: Portions of this record may have been created with voice recognition software. Level of Care: Express Care Visit Vital Signs Vital signs: Vital Signs Temperature 36.2 C L 11/24/24 17:26 Pulse Rate 63 11/24/24 17:26 Respiratory Rate 18 11/24/24 17:26 Blood Pressure 125/74 11/24/24 17:26 Pulse Oximetry 98 11/24/24 17:26 Temperature 36.2 C L 11/24/24 17:26 Pulse Rate 63 11/24/24 17:26 Respiratory Rate 18 11/24/24 17:26 Blood Pressure 125/74 11/24/24 17:26 Pulse Oximetry 98 11/24/24 17:26 Vital signs reviewed MDM - URI/Sore Throat MDM Narrative Medical decision making narrative: At the time of visit patient is resting comfortably on the exam table. Patient appears to be nontoxic. Complaints of nasal congestion, head congestion, and bilateral ear pain x1 day. He reports he has been taking [id number] severe cold and flu medications. States symptoms are not improving. Rates pain 6/10 currently. No fever, chills, or body aches. No sick contacts. Denies any chest pain or shortness of breath. On exam patient has bilateral TMs intact, bulging, red, clear nasal drainage with mild inflammation, and postnasal drip. Plan: I suspect patient has URI with bilateral otitis media. Prescription for amoxicillin was sent to the pharmacy. Supportive measures were discussed with the patient and they voiced understanding discharge instructions and agrees to treatment plan. Return precautions reviewed Differential Diagnosis Differential diagnosis: Likely upper respiratory infection, otitis media, sinusitis, viral infection, bronchitis, influenza, pharyngitis and other (COVID) Lab Data Labs: Lab Results 11/24/24 Range/Units 18:07 POC Influenza A Ag Negative (Negative) POC Influenza B Ag Negative (Negative) POC SARS CoV-2 Ag Negative (Negative) Discharge Plan Discharge Clinical Impression: Upper respiratory infection Qualifiers: URI type: unspecified URI Qualified Code(s): J06.9 - Acute upper respiratory infection, unspecified Otitis media Qualifiers: Otitis media type: suppurative Chronicity: acute Laterality: bilateral Recurrence: non-recurrent Spontaneous tympanic membrane rupture: without spontaneous rupture Qualified Code(s): H66.003 - Acute suppurative otitis media without spontaneous rupture of ear drum, bilateral Patient Disposition: Home Condition: Stable Instructions: Antibiotic Form, Ear Infection (ED), Cold Symptoms (ED) Additional Instructions: COVID and influenza testing was negative in the clinic today. Take prescription medications only as prescribed-amoxicillin Increase fluids and stay well hydrated May take Tylenol or motrin as directed on bottle for pain/fever May use Flonase 1 spray in each nare daily May take OTC antihistamines such as Zyrtec or Claritin daily as directed on bottle May apply Vicks vapor rub to chest to open sinuses Sinus rinses for congestion Cepacol spray, cough drops, throat lozenges, warm tea with honey/lemon, gargle salt water to soothe throat BRAT diet for diarrhea Clear liquids x 24 hours then advance as tolerated for nausea/vomiting Go to the ED if you develop a worsening in your condition- high fever not controlled by Tylenol or Motrin, dehydration, weakness, lethargy, shortness of breath, or chest pain. Follow up with your PCP in 3-5 days if symptoms persist. Patient Language: Korean Prescriptions: New amoxicillin 875 mg tablet 875 mg PO Q12H 7 Days Qty: 14 0RF No Action losartan 50 mg tablet 50 mg PO DAILY meloxicam 7.5 mg tablet 7.5 mg PO DAILY pantoprazole 40 mg tablet,delayed release (DR/EC) 40 mg PO DAILY hydrochlorothiazide 12.5 mg tablet 12.5 mg PO DAILY Follow-up/Referrals: Andre,MALENA Barcenas [Primary Care Provider, Unknown] Time of Disposition: 17:57 Quality NIHSS Nursing Documentation ED NIHSS nursing documentation: reviewed/agree
[2024-11-24 18:08] LABS: EDCOVIDSCREEN Negative (Negative); EDINFLUASCREEN Negative (Negative); EDINFLUBSCREEN Negative (Negative)
== END 2024-11-24 18:00 | disposition home or self-care (01) ==
PROVIDERS: Emergency Provider Nurse Practitioner Family; PCP Physician Assistant
DX: J06.9 Acute upper respiratory infection, unspecified (principal); H66.003 Acute suppurative otitis media without spontaneous rupture of ear drum, bilateral; Z20.822 Contact with and (suspected) exposure to COVID-19; Z96.651 Presence of right artificial knee joint
CPT/HCPCS: 87426; 87804; 99213; G0463